=== PATIENT | female | born 1990 | race Caucasian/White ===

== ENCOUNTER 2016-08-21 08:03 | Emergency (ER) | payer OTHER ==
[~2016-08-21] VITALS: Ht 160 cm; Wt 116.0 kg
[~2016-08-21 08:03] MED LIST: FERR325T82 PO; IBUP-1542 PO; OMEP20CA9 PO; PNV1TABL50 PO; RANI150T9 PO
[2016-08-21 08:04] VITALS: Ht 160 cm; Wt 116.0 kg
[2016-08-21] MEDS ORDERED: ONDANSETRON 4 MG INJ IV STA (08:42)
[2016-08-21] MEDS ORDERED: SOD CHLORIDE 0.9% 1,000 ML IV STA (08:42)
[2016-08-21] MEDS ORDERED: FAMOTIDINE 20 MG INJ IV ONE (09:00)
[2016-08-21 09:21] LABS: ADD SCAN DIFF NO
[2016-08-21 09:25] LABS: ADD UMIC YES; URINE BILIRUBIN (Dip) NEGATIVE (NEGATIVE); URINE BLOOD (Dip) 3+ (NEGATIVE); URINE COLOR LT. YELLOW (YELLOW); URINE GLUCOSE (Dip) NEGATIVE (NEGATIVE); URINE KETONES (Dip) NEGATIVE (NEGATIVE); URINE LEUKOCYTE ESTERASE (Dip) NEGATIVE (NEGATIVE); URINE NITRITE (Dip) NEGATIVE (NEGATIVE); URINE TOTAL PROTEIN (Dip) 2+ (NEGATIVE); URINE UROBILINOGEN (Dip) 0.2 E.U./dL (0.1-1.0)
[2016-08-21 09:29] LABS: BASOPHILS % 0.3 % (0.0-2.0); EOSINOPHILS # 0.1 10^3/ul (0.0-0.5); EOSINOPHILS % 1.7 % (0.0-7.0); HEMATOCRIT 37.4 % (37.0-47.0); HEMOGLOBIN 11.3 g/dl (12.0-16.0); LYMPHOCYTES % 13.5 % (15.0-51.0); MEAN CORPUSCULAR HEMOGLOBIN 25.2 pg (29.0-33.0); MEAN CORPUSCULAR HGB CONC 30.2 g/dl (32.0-37.0); MEAN CORPUSCULAR VOLUME 83.5 fl (82.0-101.0); MEAN PLATELET VOLUME 11.7 fl (7.4-10.4); MONOCYTE # 0.5 10^3/ul (0.3-0.9); MONOCYTES % 6.6 % (0.0-11.0); NEUTROPHIL # 5.6 10^3/ul (1.6-7.5); NEUTROPHILS % 77.5 % (39.0-77.0); PLATELET COUNT 310 10^3/UL (140-415); RED BLOOD COUNT 4.48 10^6/ul (4.20-5.40); RED CELL DISTRIBUTION WIDTH 15.1 % (11.5-14.5); WHITE BLOOD COUNT 7.2 10^3/ul (4.8-10.8)
[2016-08-21 09:45] LABS: BACTERIA,URINE MANY
[2016-08-21 09:46] LABS: ALBUMIN 4.7 g/dl (3.3-4.9); POTASSIUM 3.7 mmol/L (3.5-5.1)
[2016-08-21 09:48] LABS: BILIRUBIN,INDIRECT 0.2 mg/dl (0-1.1); BILIRUBIN,TOTAL 0.2 mg/dl (0.2-1.3); CREATININE 0.77 mg/dl (0.44-1.00)
[2016-08-21 09:49] LABS: ALBUMIN/GLOBULIN RATIO 1.11; CALCIUM 9.3 mg/dl (8.4-10.2); TOTAL PROTEIN 8.9 g/dl (6.1-8.1)
[2016-08-21] MEDS ORDERED: ACETAMINOPHEN 325 MG TAB PO ONE (10:30)
[2016-08-21] MEDS ORDERED: morphine 4 MG/ML VIAL IV STA (11:14)
[2016-08-21] MEDS ORDERED: ACET325T33 PO (11:16)
[2016-08-21] MEDS ORDERED: ONDA4TAB14 PO (11:16)
[2016-08-21 12:10] VITALS: BP 118/58; RESP 20; TEMP 97.7
--- NOTE | 2016-08-21 12:34 | ERD ---
ER Documentation Chief Complaint Date/Time DATE: 08/21/16 TIME: 12:30 Chief Complaint ap with vomiting and diarrhea x 3 days HPI 26-year-old female patient with no significant past medical history presents the ED complaining of epigastric pain and left-sided upper abdominal pain that started 4 days ago. Reports that she has had decreased appetite. States that she has had a history of pancreatitis and a status post cholecystectomy. Reports that she has had a few episodes of nonbilious nonbloody vomiting and nonbloody nonmucoid diarrhea. States that she has had previous endoscopies, last one was in July. Denies any chest pain, shortness of breath, wheezing, pelvic pain, vaginal bleeding, vaginal discharge. ROS All systems reviewed and are negative except as per history of present illness. Medications Home Meds Active Scripts Ondansetron (Ondansetron Odt) 4 Mg Tab.rapdis, 4 MG PO Q6H Y for NAUSEA AND/OR VOMITING, #10 TAB Prov:DIANE ARNDT PA-C 08/21/16 Acetaminophen* (Tylenol*) 325 Mg Tablet, 2 TAB PO Q8 Y for PAIN AND OR ELEVATED TEMP, #20 TAB Prov:DIANE ARNDT PA-C 08/21/16 Ranitidine Hcl* (Zantac*) 150 Mg Tablet, 150 MG PO BID Y for EPIGASTRIC PAIN, # 30 TAB Prov:KAMRAN ROWLAND PA-C 10/30/15 Omeprazole* (Prilosec*) 20 Mg Capsule.dr, 20 MG PO BID, #60 CAP Prov:KAMRAN ROWLAND PA-C 10/30/15 Ibuprofen* (Ibuprofen*) 600 Mg Tablet, 600 MG PO Q6, #30 TAB Prov:PAULINA ERAZO PA-C 06/29/15 Reported Medications Ferrous Sulfate (YARI-TIME) 325 Mg Tablet, 325 MG PO DAILY 12/09/12 Pnv With Ca,No.71/Iron/Fa (PRENAPLUS TABLET) 1 Each Tablet, 1 EACH PO DAILY 12/09/12 Allergies Allergies: Coded Allergies: butorphanol tartrate (Verified Allergy, Severe, SHORTNESS OF BREATH, 04/07) PMhx/Soc History of Surgery: Yes (cholecystectomy) Anesthesia Reaction: No Hx Neurological Disorder: No Hx Respiratory Disorders: No Hx Cardiac Disorders: No Hx Psychiatric Problems: No Hx Miscellaneous Medical Probl: Yes (pancreatitis) Hx Alcohol Use: No Hx Substance Use: No Hx Tobacco Use: No Physical Exam Vitals Vital Signs Date Time Temp Pulse Resp B/P Pulse Ox O2 Delivery O2 Flow Rate FiO2 08/21/16 12:10 97.7 20 118/58 99 Room Air 08/21/16 08:04 97.8 99 20 129/93 99 Physical Exam Const: [id number]-[id number], well-nourished. In no acute distress. Head: Atraumatic, normocephalic Eyes: Normal Conjunctiva without injection. No purulent discharge. ENT: Normal external ear, nose. Moist oropharynx without tonsillar exudates. Non -erythematous pharynx. Uvula midline. No drooling. No trismus. Neck: No cervical midline tenderness. Full range of motion. No meningismus. No cervical lymphadenopathy. No JVD. Resp: Clear to auscultation bilaterally. No wheezing, rhonchi, rales, or crackles. No accessory muscle use. No retractions. Cardio: Regular rate and rhythm. No murmurs, rubs or gallops. Abd: Soft, epigastric and left upper quadrant tenderness, non distended. Normal bowel sounds. No palpable masses. No rebound tenderness. No guarding. Negative McBurney's point. Negative psoas sign. Negative obturator sign. Skin: No petechiae or rashes Back: No midline tenderness. No CVA tenderness. Ext: No cyanosis, or edema. Neur: Awake and alert. Normal gait. Normal coordination. Psych: Normal Mood and Affect Results 24 hrs Laboratory Tests Test 08/21/16 09:00 White Blood Count 7.210^3/ul Red Blood Count 4.4810^6/ul Hemoglobin 11.3g/dl Hematocrit 37.4% Mean Corpuscular Volume 83.5fl Mean Corpuscular Hemoglobin 25.2pg Mean Corpuscular Hemoglobin Concent 30.2g/dl Red Cell Distribution Width 15.1% Platelet Count 43794^3/UL Mean Platelet Volume 11.7fl Neutrophils % 77.5% Lymphocytes % 13.5% Monocytes % 6.6% Eosinophils % 1.7% Basophils % 0.3% Nucleated Red Blood Cells % 0.0/100WBC Neutrophils # 5.610^3/ul Lymphocytes # 1.010^3/ul Monocytes # 0.510^3/ul Eosinophils # 0.110^3/ul Basophils # 0.010^3/ul Nucleated Red Blood Cells # 0.010^3/ul Urine Color LT. YELLOW Urine Clarity CLEAR Urine pH 6.0 Urine Specific Beccaria >=1.030 Urine Ketones NEGATIVE Urine Nitrite NEGATIVE Urine Bilirubin NEGATIVE Urine Urobilinogen 0.2 E.U./dL Urine Leukocyte Esterase NEGATIVE Urine Microscopic RBC 10-25/HPF Urine Microscopic WBC 2-5/HPF Urine Epithelial Cells MODERATE Urine Bacteria MANY Urine Yeast MODERATE Urine Hemoglobin 3+ Urine Glucose NEGATIVE% Urine Total Protein 2+ Urine Test NEGATIVE Sodium Level 141mmol/L Potassium Level 3.7mmol/L Chloride Level 105mmol/L Carbon Dioxide Level 22mmol/L Anion Gap 18 Blood Urea Nitrogen 10mg/dl Creatinine 0.77mg/dl Glucose Level 101mg/dl Calcium Level 9.3mg/dl Total Bilirubin 0.2mg/dl Direct Bilirubin 0.00mg/dl Indirect Bilirubin 0.2mg/dl Aspartate Amino Transf (AST/SGOT) 40IU/L Alanine Aminotransferase (ALT/SGPT) 25IU/L Alkaline Phosphatase 92IU/L Total Protein 8.9g/dl Albumin 4.7g/dl Globulin 4.20g/dl Albumin/Globulin Ratio 1.11 Lipase 118U/L Current Medications Medications (Trade) Dose Ordered Sig/Sheryl Route PRN Reason Start Time Stop Time Status Last Admin Dose Admin Sodium Chloride (NS) 1,000 ml @ 1,000 mls/hr Q1H STAT IV 08/21/16 08:42 08/21/16 09:41 DC 08/21/16 09:12 Ondansetron HCl (Zofran Inj) 4 mg ONCE STAT IV 08/21/16 08:42 08/21/16 08:44 DC 08/21/16 09:09 Famotidine (Pepcid Iv) 20 mg ONCE ONCE IV 08/21/16 09:00 08/21/16 09:01 DC 08/21/16 09:09 Acetaminophen (Tylenol Tab) 650 mg ONCE ONCE PO 08/21/16 10:30 08/21/16 10:31 DC 08/21/16 11:02 Morphine Sulfate (morphine) 4 mg ONCE STAT IV 08/21/16 11:14 08/21/16 11:15 DC 08/21/16 11:41 Procedures/MDM This is a 26-year-old female patient with no significant past medical history presents to the ED complaining of epigastric and left upper quadrant abdominal pain associated with vomiting and diarrhea. Patient is afebrile nontoxic appearing. Patient has normal vital signs. Patient was further worked up with CBC, CMP, lipase, UA, urine . Patient's pain and symptoms have improved after treatment with 4 mg IV morphine (patient states that she has taken it without difficulty or adverse reactions), 4 mg IV Zofran, Tylenol. CBC: No leukocytosis. No e/o of systemic infection. No e/o anemia. CMP: No e/o severe acidosis, alkalosis, renal failure, diabetic ketoacidosis, liver disease Lipase within normal limits. Urine: No leukocyte esterase, no nitrites, no hematuria. Urine : negative Low suspicion for cholecystitis, choledocholithiasis, cholangitis, pancreatitis. Patient's symptoms could be due to viral etiology. A differential diagnosis considered includes but is not limited to gastritis, GERD , peptic ulcer disease, appendicitis, bowel obstruction, ileus, volvulus, nephrolithiasis, pyelonephritis, hepatitis, perforated viscus, diverticulitis, abdominal hernia, acute abdomen, mesenteric ischemia or other emergent conditions. 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 Instructed patient to return to the ED sooner for any worsening symptoms. Patient's questions were answered. Patient understood and agreed with discharge plan. Patient discharged stable. Departure Diagnosis: Primary Impression: Epigastric pain Additional Impression: Vomiting and diarrhea Condition: Stable Patient Instructions: Self-Care for Vomiting and Diarrhea, Epigastric Pain ( Uncertain Cause) Referrals: [facility] YOU HAVE RECEIVED A MEDICAL SCREENING EXAM AND THE RESULTS INDICATE THAT YOU DO NOT HAVE A CONDITION THAT REQUIRES URGENT TREATMENT IN THE EMERGENCY DEPARTMENT. FURTHER EVALUATION AND TREATMENT OF YOUR CONDITION CAN WAIT UNTIL YOU ARE SEEN IN YOUR DOCTORS OFFICE WITHIN THE NEXT 1-2 DAYS. IT IS YOUR RESPONSIBILITY TO MAKE AN APPOINTMENT FOR FOLOW-UP CARE. IF YOU HAVE A PRIMARY DOCTOR --you should call your primary doctor and schedule an appointment IF YOU DO NOT HAVE A PRIMARY DOCTOR YOU CAN CALL OUR PHYSICIAN REFERRAL HOTLINE AT IF YOU CAN NOT AFFORD TO SEE A PHYSICIAN YOU CAN CHOSE FROM THE FOLLOWING [facility] [address] [facility] [address] [facility] [address] [facility] [address] [facility] [address] [facility] [facility]. [address] [facility] [facility] YOU HAVE RECEIVED A MEDICAL SCREENING EXAM AND THE RESULTS INDICATE THAT YOU DO NOT HAVE A CONDITION THAT REQUIRES URGENT TREATMENT IN THE EMERGENCY DEPARTMENT. FURTHER EVALUATION AND TREATMENT OF YOUR CONDITION CAN WAIT UNTIL YOU ARE SEEN IN YOUR DOCTORS OFFICE WITHIN THE NEXT 1-2 DAYS. IT IS YOUR RESPONSIBILITY TO MAKE AN APPOINTMENT FOR FOLOW-UP CARE. IF YOU HAVE A PRIMARY DOCTOR --you should call your primary doctor and schedule and appointment IF YOU DO NOT HAVE A PRIMARY DOCTOR YOU CAN CALL OUR PHYSICIAN REFERRAL HOTLINE AT . IF YOU CAN NOT AFFORD TO SEE A PHYSICIAN YOU CAN CHOSE FROM THE FOLLOWING [facility] INSTIT[facility]IONS: [facility] [address] [place] [address] [facility] [address] [place] [address] [facility] [address] [place] [address] [facility] URGENT CARE/SPECIALTIES Additional Instructions: Visite a obrien chai carmona para un EXAMEN para un referido a un gastroenter logo. Regrese a estas instalaciones si no se mejora naomi esperbamos o naomi le dijimos. DIANE ARNDT PA-C August 21, 2016 12:34 DIANE ARNDT PA-C August 21, 2016 12:34
== END 2016-08-21 12:27 | disposition home or self-care (01) ==
LOC: FTE 08:03
DX: R10.13 Epigastric pain (principal); R11.10 Vomiting, unspecified; R19.7 Diarrhea, unspecified
CPT/HCPCS: 36415; 80053; 81001; 83690; 84703; 85025; 96361; 96374; 96375; J2270; J2405; J7030; Z7502; Z7610; 81003

== ENCOUNTER 2017-07-28 07:55 | Emergency (ER) | END 2017-07-28 11:25 | disposition home or self-care (01) ==

== ENCOUNTER 2017-08-17 07:52 | Emergency (ER) | END 2017-08-17 11:27 | disposition short-term general hospital (02) ==

== ENCOUNTER 2018-05-13 14:42 | Emergency (ER) | payer OTHER ==
[~2018-05-13] VITALS: Wt 123.1 kg
[~2018-05-13 14:42] MED LIST changes: +ACET325T33 PO; +DICY10CA40 PO; +ONDA4TAB14 PO; +ONDA4TAB8 PO; +RANI150T35 PO; -RANI150T9 PO
[2018-05-13] MEDS ORDERED: SOD CHLORIDE 0.9% 1,000 ML IV STA (15:20)
[2018-05-13] MEDS ORDERED: ONDANSETRON 4 MG INJ IV STA (15:20)
[2018-05-13] MEDS ORDERED: KETOROLAC 15 MG INJ IV STA (15:20)
[2018-05-13] MEDS ORDERED: HYDR-4011 PO (16:36)
[2018-05-13] MEDS ORDERED: NAPR-985 PO (16:36)
[2018-05-13] MEDS ORDERED: TAMS-14 PO (16:36)
[2018-05-13] MEDS ORDERED: ONDA4TAB14 PO (16:42)
[2018-05-13 17:06] VITALS: BP 128/76; PULSE 88; RESP 16
--- NOTE | 2018-05-13 19:08 | ERD ---
ER Documentation Chief Complaint Chief Complaint LT SIDED ABD PAIN N/V X3DAYS HX PANCREATITIS HPI Patient is a 28-year-old female with past medical history of cholecystectomy, pancreatitis presenting to the emergency department complaints of left flank pain which is rated 7/10 in severity, intermittent. Associated symptoms include fevers. The patient took ibuprofen at home with some relief. Patient also had 3 episodes of vomiting today which is nonbilious and nonbloody. Patient's symptoms are worse with walking. She denies any diarrhea, EtOH use, or other symptoms at this time. ROS All systems reviewed and are negative except as per history of present illness. Medications Home Meds Active Scripts Ondansetron (Ondansetron Odt) 4 Mg Tab.rapdis, 4 MG PO Q6H PRN for NAUSEA AND/OR VOMITING, #10 TAB Prov:BRYCE MENESES PA-C 05/13/18 Tamsulosin Hcl* (Flomax*) 0.4 Mg Cap.er.24h, 0.4 MG PO QPM, #30 CAP Prov:BRYCE MENESES PA-C 05/13/18 Naproxen* (Naprosyn*) 500 Mg Tablet, 500 MG PO BID PRN for PAIN AND/OR INFLAMM ATION, #30 TAB Prov:BRYCE MENESES PA-C 05/13/18 Hydrocodone/Acetaminophen (Kountze 5-325 Tablet) 1 Each Tablet, 1 TAB PO Q6H PRN for PAIN, #7 TAB Prov:BRYCE MENESES PA-C 05/13/18 Dicyclomine HCl (Dicyclomine HCl) 10 Mg Capsule, 10 MG PO TID, #15 Prov:SUSAN MARTINEZ 07/28/17 Ondansetron Hcl* (Zofran*) 4 Mg Tablet, 4 MG PO Q6H for NAUSEA AND/OR VOMITING, #30 TAB Prov:SUSAN MARTINEZ 18 Ondansetron (Ondansetron Odt) 4 Mg Tab.rapdis, 4 MG PO Q6H PRN for NAUSEA AND/OR VOMITING, #10 TAB Prov:DIANE ARNDT PA-C 08/21/16 Acetaminophen* (Tylenol*) 325 Mg Tablet, 2 TAB PO Q8 PRN for PAIN AND OR ELEVATED TEMP, #20 TAB Prov:DIANE ARNDT PA-C 08/21/16 Ranitidine Hcl* (Zantac*) 150 Mg Tablet, 150 MG PO BID PRN for EPIGASTRIC PAIN, #30 TAB Prov:KAMRAN ROWLAND PA-C 10/30/15 Omeprazole* (Prilosec*) 20 Mg Capsule.dr, 20 MG PO BID, #60 CAP Prov:KAMRAN ROWLAND PA-C 10/30/15 Ibuprofen* (Ibuprofen*) 600 Mg Tablet, 600 MG PO Q6, #30 TAB Prov:PAULINA ERAZO PA-C 06/29/15 Reported Medications Ferrous Sulfate (YARI-TIME) 325 Mg Tablet, 325 MG PO DAILY 12/09/12 Pnv With Ca,No.71/Iron/Fa (PRENAPLUS TABLET) 1 Each Tablet, 1 EACH PO DAILY 12/09/12 Allergies Allergies: Coded Allergies: butorphanol tartrate (Verified Allergy, Severe, SHORTNESS OF BREATH, 07/28/17) PMhx/Soc History of Surgery: Yes (cholecystectomy; 3 CAESARIAN SECTIONL; TUBAL LIgation) Anesthesia Reaction: No Hx Neurological Disorder: No Hx Respiratory Disorders: No Hx Cardiac Disorders: Yes (PRE ECLAMPSIA) Hx Psychiatric Problems: No Hx Miscellaneous Medical Probl: Yes (pancreatitis) Hx Alcohol Use: No Hx Substance Use: No Hx Tobacco Use: No FmHx Family History: No diabetes Physical Exam Vitals Vital Signs Date Temp Pulse Resp B/P (MAP) Pulse Ox O2 O2 Flow FiO2 Time Delivery Rate 05/13/18 97.8 88 16 128/76 99 Room Air 17:06 (93) 05/13/18 99.0 100 20 122/69 99 14:46 (86) Physical Exam Const: No acute distress Head: Atraumatic Eyes: Normal Conjunctiva ENT: Normal External Ears, Nose and Mouth. Neck: Full range of motion. No meningismus. Resp: Clear to auscultation bilaterally Cardio: Regular rate and rhythm, no murmurs Abd: Soft, non tender, non distended. Normal bowel sounds. No rebound tenderness or guarding. No McBurney's point tenderness. Skin: No petechiae or rashes Back: Tenderness to palpation in the left flank region. Ext: No cyanosis, or edema Neur: Awake and alert Psych: Normal Mood and Affect Result Diagram: 05/13/18 1538 05/13/18 1538 Results 24 hrs Laboratory Tests Test 05/13/18 15:36 05/13/18 15:38 POC Beta HCG, Qualitative NEGATIVE White Blood Count 12.2 10^3/ul Red Blood Count 4.22 10^6/ul Hemoglobin 10.2 g/dl Hematocrit 33.2 % Mean Corpuscular Volume 78.7 fl Mean Corpuscular Hemoglobin 24.2 pg Mean Corpuscular Hemoglobin Concent 30.7 g/dl Red Cell Distribution Width 16.2 % Platelet Count 397 10^3/UL Mean Platelet Volume 10.8 fl Immature Granulocytes % 0.400 % Neutrophils % 78.1 % Lymphocytes % 15.1 % Monocytes % 4.1 % Eosinophils % 2.0 % Basophils % 0.3 % Nucleated Red Blood Cells % 0.0 /100WBC Immature Granulocytes # 0.050 10^3/ul Neutrophils # 9.5 10^3/ul Lymphocytes # 1.9 10^3/ul Monocytes # 0.5 10^3/ul Eosinophils # 0.2 10^3/ul Basophils # 0.0 10^3/ul Nucleated Red Blood Cells # 0.0 10^3/ul Prothrombin Time 12.7 Sec Prothrombin Time Ratio 1.0 INR International Normalized Ratio 0.94 Activated Partial Thromboplast Time 38.3 Sec Urine Color YELLOW Urine Clarity SLIGHTLY CLOUDY Urine pH 5.0 Urine Specific [place] 1.021 Urine Ketones NEGATIVE mg/dL Urine Nitrite NEGATIVE mg/dL Urine Bilirubin NEGATIVE mg/dL Urine Urobilinogen NEGATIVE mg/dL Urine Leukocyte Esterase NEGATIVE Zulma/ul Urine Microscopic RBC > 182 /HPF Urine Microscopic WBC 6 /HPF Urine Squamous Epithelial Cells FEW /HPF Urine Mucus FEW /HPF Urine Hemoglobin 3+ mg/dL Urine Glucose NEGATIVE mg/dL Urine Total Protein 1+ mg/dl Sodium Level 142 mmol/L Potassium Level 4.2 mmol/L Chloride Level 109 mmol/L Carbon Dioxide Level 26 mmol/L Anion Gap 7 Blood Urea Nitrogen 14 mg/dl Creatinine 0.79 mg/dl Est Glomerular Filtrat Rate mL/min > 60 mL/min Glucose Level 99 mg/dl Calcium Level 9.6 mg/dl Total Bilirubin 0.0 mg/dl Direct Bilirubin 0.00 mg/dl Indirect Bilirubin 0.0 mg/dl Aspartate Amino Transf (AST/SGOT) 27 IU/L Alanine Aminotransferase (ALT/SGPT) < 6 IU/L Alkaline Phosphatase 85 IU/L Total Protein 8.6 g/dl Albumin 4.5 g/dl Globulin 4.10 g/dl Albumin/Globulin Ratio 1.09 Lipase 183 U/L Current Medications Medications Dose Sig/Sheryl Start Time Status Last (Trade) Ordered Route PRN Stop Time Admin Dose Reason Admin Sodium 1,000 ml @ Q1H STAT 05/13/18 DC 05/13/18 Chloride 1,000 mls/hr IV 15:20 05/13/18 15:35 16:19 Ondansetron 4 mg ONCE STAT 05/13/18 DC 05/13/18 HCl (Zofran IV 15:20 05/13/18 15:35 Inj) 15:22 Ketorolac 15 mg ONCE STAT 05/13/18 DC 05/13/18 Tromethamine IV 15:20 05/13/18 15:36 (Toradol) 15:22 [place] [address] Radiology Main Line: [phone] DIAGNOSTIC IMAGING REPORT Patient: MALKA SANTA : 1990 Age: 28 Sex: F MR #: [id number] DOS: 05/13/18 1520 Ordering MD: BRYCE MENESES PA-C Location: [facility] Room/Bed: PROCEDURE: CT abdomen and pelvis without contrast. CLINICAL INDICATION: Abdominal pain TECHNIQUE: Continues 2.5 mm axial images were obtained from the domes of the diaphragms to the inferior pubic rami. No oral or intravenous contrast was administered. The calculated dose length product (DLP) = 1469.92 mGy-cm. Exam CTDlvol = 23.31 mGy. One or more of the following dose reduction techniques were used: Automated exposure control, adjustment of the mA and or KV according to patient size, or use of iterative reconstruction technique. One or more of the following dose reduction techniques were used: Automated exposure control, adjustment of the mA and or KV according to patient size, or use of iterative reconstruction technique. DICOM images are available. COMPARISON: 07/28/2017 FINDINGS: Lung bases are clear. No pleural pericardial fluid is seen. Gallbladder surgically absent. There is no biliary duct dilatation. Liver, pancreas, spleen, and adrenals are within normal limits on this noncontrast study. Evaluation genitourinary system demonstrates a 1 mm partially obstructing calculus in the mid-left ureter at the level of L3-4 (image #3 - 101). This cau ses mild fullness of the left renal collecting system. There is no perinephric fluid or stranding. Right kidney and collecting system are normal. Aorta is normal in caliber. No pathologically enlarged mesenteric lymph nodes are seen. There are reactive left periaortic lymph nodes. Stomach and small bowel loops are within normal limits. Is no small bowel dilatation or obstruction. Tiny ventral hernia containing fat. No free fluid, free air, abscess is noted in the upper abdomen CT pelvis: Images through the pelvis demonstrate no free fluid, free air, abscess. Bladder is partially distended grossly unremarkable. Uterus and adnexa are within normal limits. Evaluation of the colon demonstrates no diverticulosis, diverticulitis or acute colitis. Normal appendix and terminal ileum are identified. There are no pathologically enlarged iliac chain lymph nodes. No destructive bony lesions are seen. IMPRESSION: 1. 1 mm partially obstructing calculus in the mid-left ureter at the level of L3-4 with minimal fullness of the left renal collecting system. 2. Normal right kidney and collecting system. 3. Status post cholecystectomy. There is stable minimal pneumobilia. No biliary duct dilatation is seen. 4. Normal appendix and terminal ileum. 5. Small ventral hernia containing fat RPTAT: .James Jacobs MD, MD Date Time Electronically viewed and signed by .James Jacobs MD, MD on 05/13/2018 16:21 .W/ CC: BRYCE MENESES PA-C [phone] Procedures/[facility] Patient is a 28-year-old female presenting to the emergency department with complaints of left flank pain associated with nausea and vomiting. Patient did have some tenderness to palpation of the left flank region. CT abdomen and pelvis without contrast showed a partially obstructing left ureteral stone. Full report from the radiologist may be viewed above. Laboratory studies show no significant acute abnormalities. Patient improved after IV fluids and IV Toradol in the department. On reevaluation she was significantly improved. No evidence to suggest acute surgical abdomen, complete obstructing stone, sepsis, or other emergencies. Patient was stable and appropriate for discharge and further treatment as an outpatient. She was advised to return to the department immediately for any new or worsening or concerning symptoms. She agreed with the diagnosis, plan, need for follow-up, return precautions. Departure Diagnosis: Primary Impression: Calculus of left ureter Condition: Fair Patient Instructions: Kidney Stone W/ Colic Referrals: RUTHIE GUDINO,MAGDALENA RENNER,NIDHI ANDREW,ERIKA VINSON,ERI FOSTER,RICH CARDOSO Additional Instructions: Call your primary care doctor TOMORROW for an appointment during the next 1-2 days.See the doctor sooner or return here if your condition worsens before your appointment time. SPECIALIST: YOU HAVE A MEDICAL CONDITION WHICH REQUIRES YOU TO SEE A SPECIALIST WITHIN THE NEXT 1-2 DAYS. PLEASE FOLLOW UP WITH YOUR PRIMARY PHYSICIAN FOR REFFERAL.IF YOU DO NOT HAVE A PRIMARY CARE PHYSICIAN AND/OR YOU CAN NOT AFFORD TO SEE A PHYSICIAN THE FOLLOWING RESOURCES HAVE BEEN SUPPLIED TO YOU. IT IS YOUR RESPONSIBILITY TO BE SEEN BY THE SPECIALIST: UROLOGY BRYCE MENESES PA-C May 13, 2018 19:08
== END 2018-05-13 17:07 | disposition home or self-care (01) ==
LOC: FTE 14:42
DX: N20.1 Calculus of ureter (principal)
CPT/HCPCS: 74176; 80053; 81001; 81025; 83690; 85025; 85610; 85730; J1885; J2405; J7030; 36415; 96361; 96374; 96375

== ENCOUNTER 2019-02-02 09:55 | Emergency (ER) | payer OTHER ==
[~2019-02-02] VITALS: Ht 157.5 cm; Wt 121.8 kg
[~2019-02-02 09:55] MED LIST changes: +ACET500C5 PO; +HYDR-4011 PO; +NAPR-985 PO; +RANI-535 PO; -RANI150T35 PO; +TAMS-14 PO
[2019-02-02 10:03] VITALS: BP 157/86; PULSE 105; RESP 18; Ht 157.5 cm; Wt 121.8 kg
[2019-02-02] MEDS ORDERED: SOD CHLORIDE 0.9% 1,000 ML IV STA (10:33)
[2019-02-02] MEDS ORDERED: KETOROLAC 30 MG INJ IV STA (10:33)
[2019-02-02] MEDS ORDERED: LIDOCAINE/MYLANTA 40 ML BTL PO STA (10:33)
[2019-02-02] MEDS ORDERED: BELLADONNA/PHENOBARBITAL TAB PO STA (10:33)
[2019-02-02] MEDS ORDERED: FAMOTIDINE 20 MG INJ IV STA (10:33)
== END 2019-02-02 13:12 | disposition home or self-care (01) ==
LOC: FTE 09:55
DX: R10.9 Unspecified abdominal pain (principal); R19.7 Diarrhea, unspecified
CPT/HCPCS: 36415; 71045; 74176; 80053; 81001; 81025; 83690; 85025; 96361; 96374; 96375; J1885; J7030; Z7502; Z7610